=== PATIENT | male | born 1975 | race Caucasian/White ===

== ENCOUNTER 2022-05-23 09:26 | Emergency (ER) | payer BC, SELFPAY ==
[2022-05-23 09:35] VITALS: PULSE 94; RESP 20; TEMP 37; O2SAT 99
--- NOTE | 2022-05-23 10:31 | ED.GENADULT ---
HPI - General Adult General Chief complaint: Skin/Abscess/Foreign Body Stated complaint: Bee Sting History of Present Illness HPI narrative: Patient presents for evaluation of right-sided facial swelling. He indicates 2 days ago he was stung by a hornet on the right parietal aspect of his scalp. Yesterday he felt some swelling around the TMJ. He thought that this was an infectious process. He states that he has several bad teeth . He also has a history of recurrent sinusitis. He denies any sinus congestion or drainage at the present time. He denies any dental pain or facial pain. He states that he feels like there is something stuck in his right eye. He has some tearing and sensation that right eye feels like sandpaper. Denies other visual disturbance. No additional complaints or concerns. Related Data Allergies Allergy/AdvReac Type Severity Reaction Status Date / Time No Known Allergies Allergy Unverified 06/28/14 14:02 Review of Systems Review of Systems: CONSTITUTIONAL: Denies fever, chills, or sweats. EYES: Reports sensation of that there is something stuck in right eye with associated tearing. Reports sensation that his right eye feels like sandpaper. Reports tearing from right eye. Denies other visual disturbance. ENT: Reports swelling in right TMJ area. Denies rhinorrhea, congestion, sore throat, or otalgia. CARDIOVASCULAR: Denies chest pain, palpitations, or edema. RESPIRATORY: Denies cough or dyspnea. GASTROINTESTINAL: Denies abdominal pain, nausea, vomiting, or diarrhea. GENITOURINARY: Denies dysuria or hematuria. SKIN: Denies rash or itching. MUSCULOSKELETAL: Denies back pain, joint pain, or myalgia. NEUROLOGIC: Denies headache, numbness, dizziness, or weakness. PSYCHIATRIC: Denies anxiety or depression. [facility] Past Medical History Medical History (Updated 05/23/22 @ 10:44 by NELA Mckeon, ALLEN) History of baxter Surgical History Surgical History History of skin graft Family History Family History Mother Diabetes mellitus Father Diabetes mellitus Social History Social History Smoking status: Current every day smoker Tobacco type: e-cigarettes/vaping Alcohol intake: current Alcohol use details: social Substance use: never Living arrangements: with family Gender identity (if verbalized by the patient): Male Sexual Orientation (if Verbalized by the Patient): Straight or Heterosexual Spiritual care concerns: No Exam Narrative: GENERAL: Well-appearing, well-nourished, and in no acute distress. HEAD: Normocephalic, atraumatic. EYES: PERRLA and EOMI. I do not appreciate any dye uptake noted with fluorescein stain and Chacon lamp evaluation ENT: Nares clear, no rhinorrhea or epistaxis. Mucous membranes moist. Oropharynx without tonsillar hypertrophy exudate or other lesions. There are several fractured teeth eroded to the gumline. Multiple absent teeth. I do not appreciate any dental abscess. I do not appreciate any facial swelling. Bilateral TMs pearly rm nonbulging NECK: Supple. No adenopathy or masses. No carotid bruits or JVD CHEST: Clear to auscultation. No respiratory distress. No wheezes rales or rhonchi HEART: Regular rate and rhythm. No murmur heard. Normal peripheral pulses. ABDOMEN: Soft, nontender, nondistended, normal active bowel sounds. EXTREMITIES: Normal range of motion. No edema. SKIN: Warm, dry, no rash. NEURO: No focal deficits. Alert and oriented x3. PSYCH: Normal mood and affect. Course Course Emergency Course: This is a 46-year-old male who presented for evaluation of right-sided facial swelling and sensation of foreign body on the right eye. I do not appreciate any facial swelling, although patient does have several fractured and absent teeth. We will treat w
[2022-05-23 10:55] VITALS: BP 138/82
== END 2022-05-23 11:00 | disposition home or self-care (01) ==
PROVIDERS: Emergency Provider Nurse Practitioner; PCP Physician Assistant
DX: H10.9 Unspecified conjunctivitis (principal); S02.5XXA Fracture of tooth (traumatic), initial encounter for closed fracture; X58.XXXA Exposure to other specified factors, initial encounter; F17.290 Nicotine dependence, other tobacco product, uncomplicated
CPT/HCPCS: 99203; A9270; G0463

== ENCOUNTER 2022-05-25 07:59 | Emergency (ER) | payer BC, SELFPAY ==
--- NOTE | 2022-05-25 08:10 | ED.SKABFB ---
HPI - Skin/Abscess/Foreign Bdy General Chief complaint: Skin/Abscess/Foreign Body Stated complaint: swollen right eye Time Seen by Provider: 05/25/22 08:05 Source: patient and RN notes reviewed History of Present Illness HPI narrative: Patient is a 46-year-old male who presents the urgent care with complaints of a painful stinging rash starting in the right eye and extending over the right side of the head. The rash does not cross the midline. Patient states that he was seen here on Wednesday and treated for a possible infected tooth and pinkeye. Patient states has been taking the Augmentin as well as using the erythromycin and the rash is gotten much worse. Patient states it is painful. Denies of any trauma to the eye. Denies of any vision changes. No other acute complaints. No acute distress noted. Patient aware of the plan of care. Some parts of this dictation were generated by voice recognition software and may contain typographical and/or grammatical inaccuracies. Related Data Allergies Allergy/AdvReac Type Severity Reaction Status Date / Time No Known Allergies Allergy Unverified 05/25/22 08:09 Review of Systems Review of Systems: CONSTITUTIONAL: Denies fever, chills, or sweats. EYES: Reports of redness, swelling to the right eye ENT: Denies rhinorrhea, congestion, sore throat, or otalgia. CARDIOVASCULAR: Denies chest pain, palpitations, or edema. RESPIRATORY: Denies cough or dyspnea. GASTROINTESTINAL: Denies abdominal pain, nausea, vomiting, or diarrhea. GENITOURINARY: Denies dysuria or hematuria. SKIN: Reports of painful itchy rash to the right side of the head MUSCULOSKELETAL: Denies back pain, joint pain, or myalgia. NEUROLOGIC: Denies headache, numbness, or weakness. All other systems reviewed are negative, except as documented in HPI. COUNTS INCLUDE 234 BEDS AT THE [facility] Past Medical History Medical History (Updated 05/25/22 @ 08:16 by NELA Tay) History of baxter Surgical History Surgical History History of skin graft Family History Family History Mother Diabetes mellitus Father Diabetes mellitus Social History Social History Smoking status: Current every day smoker Tobacco type: e-cigarettes/vaping Alcohol intake: current Alcohol use details: social Substance use: never Gender identity (if verbalized by the patient): Male Sexual Orientation (if Verbalized by the Patient): Straight or Heterosexual Spiritual care concerns: No Comments At the time of my signature, I reviewed and agree with the nursing past medical, surgical, social, and family history. There is no relevant family history pertinent to the patient complaint. Exam Narrative: GENERAL: This is a well-nourished, well-developed patient, in no apparent distress. HEAD: normocephalic, atraumatic. EYES: PERRL. Left sclera clear/white. Vision is grossly intact. Moderately injected right conjunctiva with mild erythema to the left sclera and surrounding edema more notably to the upper right lid with scant yellow drainage EARS: External ears normal NOSE: External nose normal with no obvious nasal discharge, nares without redness, no rhinorrhea. THROAT: Mucous membranes moist NECK: Neck supple CARDIOVASCULAR: Regular rate and rhythm without murmurs, gallops, or rubs. RESPIRATORY: Clear to auscultation. Breath sounds equal bilaterally. No wheezes, rales, or rhonchi. SKIN: Pustular/vesicular herpes zoster dermatitis extending from the right over the parietal, temporal NEURO: awake, alert, and oriented to person, place and time. There were no obvious focal neurologic abnormalities. EXTREMITIES: No clubbing, cyanosis, or edema. Course Course Level of Care: Express Care Visit Vital Signs Vital signs: Vital Signs Temperature 99.3 F 05/25/22 08:11 Pulse Rate
[2022-05-25 08:11] VITALS: BP 175/105; PULSE 92; RESP 18; TEMP 37.4; O2SAT 100
[2022-05-25 08:23] VITALS: BP 155/98
== END 2022-05-25 08:23 | disposition home or self-care (01) ==
PROVIDERS: Emergency Provider Nurse Practitioner Family; PCP Physician Assistant
DX: B02.8 Zoster with other complications (principal); F17.290 Nicotine dependence, other tobacco product, uncomplicated
CPT/HCPCS: 99213; G0463

== ENCOUNTER 2025-02-19 08:27 | Emergency (ER) | payer BC, SELFPAY ==
[2025-02-19 08:36] VITALS: BP 140/100; PULSE 96; RESP 16; TEMP 37.1; O2SAT 97
--- OUTSIDE RECORDS SUMMARY | 2025-02-19 08:46 | XMS_ITS | Referral Summary ---
Author Organization [facility] Address [address] [place] [address] Care Team Providers Care Door Closer Name Role Phone Bashir Conley Primary Care Provider [phone] Allergies No known active allergies Medications ondansetron (ZOFRAN) 4 mg tablet Take 1 tablet (4 mg total) by mouth every 6 (six) hours 30 tablet 2 Active erythromycin (ILOTYCIN) ophthalmic ointment Apply to right eye nightly 3.5 g 1 2 Active bacitracin 500 unit/gram ointment Apply topically 2 (two) times a day 120 g 2 Active gabapentin (NEURONTIN) 300 mg capsuleIndicati ons:Neuropathic Pain Take 1 capsule (300 mg total) by mouth 3 (three) times a day Take 1 pill for 4 days, then take 2 pills for 4 days, then start taking 3 pills per day for the remainder of the course. 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 Gender Identity Male 05/26/2022 9:32 PM CDT Sexual Orientation Not on file Last Filed Vital Signs Vital Sign Reading Time Taken Comments Blood Pressure 148/65 05/27/2022 2:59 AM CDT Pulse 89 05/27/2022 2:59 AM CDT Temperature 37.3 C (99.1 F) 05/27/2022 2:59 AM CDT Respiratory Rate 18 05/27/2022 2:59 AM CDT Oxygen Saturation 98% 05/27/2022 2:59 AM CDT Inhaled Oxygen Concentration - - Weight 162.5 kg (358 lb 4 oz) 05/26/2022 9:22 PM CDT Height 193 cm (6' 3.98 ) 05/26/2022 9:22 PM CDT Body Mass Index 43.63 05/26/2022 9:22 PM CDT Plan of Treatment Not on file Insurance MARGARET GILLIAM [id number] [place] [address] PLAN MARGARET GILLIAM [id number] Care Teams Door Closer Relationship Specialty Start Date End Date Bashir Conley PA [address] [place] [address] PCP - General 05/26/22
--- OUTSIDE RECORDS SUMMARY | 2025-02-19 08:46 | XMS_ITS | Clinical Summary ---
Author Organization [facility] Address [address] [place] [address] Care Team Providers Care Steel Fitter Name Role Phone Bashir Conley Primary Care Provider [phone] Allergies No known active allergies Medications ondansetron [...] tunnel syndrome 03/15/2014 Arthralgia of wrist 03/15/2014 Surgical History Surgery Date Site/Laterality Comments SKIN GRAFT 11/15/1983 - 11/14/1984 CARPAL TUNNEL RELEASE rx1, L2x Social History Tobacco Use Types Packs/Day Years Used Date Smoking Tobacco: Former Cigarettes Smokeless Tobacco: Never Sex and Gender Information Value Date Recorded Sex Assigned at Not on file 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 Gender Identity Male 05/26/2022 9:32 PM CDT Sexual Orientation Not on file Obstetrics History Last Filed Vital Signs Vital Sign Reading [...] 05/26/2022 9:22 PM CDT Plan of Treatment Health Maintenance Due Date Last Done Comments Colon Cancer Screening-Colonoscopy 1975 Depression Screening 1975 Hepatitis C Screening 1975 DTaP/Tdap/Td Vaccine (1 - Tdap) 1986 Hepatitis B Screening 1993 Regular Well Visit/Exam 18-64 1993 Covid-19 Vaccine (3 - 2023-2 5 season) 2024 12/17/2020, 11/26/2020 Influenza Vaccine (#1) 2024 Pneumococcal vaccine <65 Aged Out No longer eligible based on patient's age to complete this topic Insurance MARGARET GILLAIM [facility] Care Teams Steel Fitter Relationship Specialty Start Date End Date Bashir Conley PA [address] [place] [address] PCP - General 05/26/22
--- OUTSIDE RECORDS SUMMARY | 2025-02-19 08:46 | XMS_ITS | Encounter Summary ---
Author Organization [facility] Address [address] [place] [address] Phone Care Team Providers Care State Game Warden Name Role Phone Bashir Conley Primary Care Provider [phone] Encounter Details Date Type Department Care Team (Late st Contact Info) Description 05/27/2022 Ophth Exam [facility] [address] [place] [address] 1st [place] [id number] Jessica Law MD [address] [facility] [id number] [place], [place] [id number] Social History Tobacco Use Types Packs/Day Years Used Date Smoking Tobacco: Former Cigarettes Smokeless Tobacco: Never Sex and Gender Information Value Date Recorded Sex Assigned at Not on file 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 Gender Identity Male 05/26/2022 9:32 PM CDT Sexual Orientation Not on file documented as of this encounter Plan of Treatment Not on file documented as of this encounter Visit Diagnoses Not on filedocumented in this encounter Eye Exam Visual Acuity Right eye Left eye Near sc 20/20 20/20 Tonometry (Tonopen, 1:30 AM) Right eye Left eye Pressure 17 14 Pupils Pupils Dark Light Shape React APD Right eye PERRL 4 2.5 Round Brisk None Left eye PERRL 4 2.5 Round Brisk None Visual Lopez (Counting fingers) Right eye Left eye Full Full Extraocular Movement Right eye Left eye Full Full Neuro/Psych Oriented x3: Yes Mood/Affect: Normal Dilation Both eyes: 1.0% Mydriacyl, 2 .5% Phenylephrine @ 1:34 AM External Exam Right eye Left eye External V1 zoster rash Normal Slit Lamp Exam Right eye Left eye Lids/Lashes Vesicular lesions in V1 distribution, including along margins, with mild eyelid swelling/redness Normal Conjunctiva/Sclera 2+ diffuse injection with resolving MARTHA superonasal White and quiet Cornea SPEE, no dendrites SPEE OS>OD Anterior Chamber Deep and quiet, no cell/flare D eep and quiet, no cell/flare Iris Round and reactive Round and rah ctive Lens 1+ NS 1+ NS Vitreous Normal Normal Fundus Exam Right eye Left eye Disc Normal Normal C/D Ratio 0.05 0.05 Macula Normal Normal Vessels Normal Normal Periphery Normal Normal Care Teams State Game Warden Relationship Specialty Start Date End Date Bashir Conley PA [address] [place] [address] PCP - General 05/26/22 documented as of this encounter
--- NOTE | 2025-02-19 10:07 | ED_ITS ---
HPI - Abdominal Pain General Chief Complaint: Abdominal Pain Stated Complaint: Vomiting/Stomach Problem Source: patient and RN notes reviewed Mode of arrival: ambulatory Limitations: no limitations History of Present Illness HPI narrative: 49-year-old male presents to the [facility] complaining epigastric pain over the last 2 years. Patient states his symptoms have been going off and on. He denies the pain being constant but he says they come in waves can last anywhere between 2 and 8 hours. When the episodes occurs he develops nausea and sometimes vomits. He reports the pain is sometimes sharp sometimes burning. He says he takes ibuprofen for his symptoms. He says he drinks large quantities of water and says that it helps with the pain sometimes. He denies any diarrhea, blood in stool, or vomiting blood. He said he used to be an alcoholic but says he stopped drinking a month ago. He denies any significant past medical history. He says he is able to keep his fluids and food down without issue. Related Data Allergies Allergy/AdvReac Type Severity Reaction Status Date / Time No Known Allergies Allergy Unverified 05/25/22 08:09 Review of Systems Review of Systems: CONSTITUTIONAL: Denies fever, chills, or sweats. EYES: Denies visual changes, redness, or discharge. ENT: Denies rhinorrhea, congestion, sore throat, or otalgia. CARDIOVASCULAR: Denies chest pain, palpitations, or edema. RESPIRATORY: Denies cough or dyspnea. GASTROINTESTINAL: Positive for abdominal pain, nausea, vomiting, Negative for diarrhea, melena, hematochezia. GENITOURINARY: Denies dysuria or hematuria. SKIN: Denies rash or itching. MUSCULOSKELETAL: Denies back pain, joint pain, or myalgia. NEUROLOGIC: Denies headache, numbness, or weakness. PSYCHIATRIC: Denies anxiety or depression. All other systems reviewed are negative, except as documented in HPI. REPLACED BY [facility] Past Medical History Medical History History of baxter Surgical History Surgical History History of skin graft Family History Family History Mother Diabetes mellitus Father Diabetes mellitus Social History Social History Smoking status: Current every day smoker Tobacco type: e-cigarettes/vaping Alcohol intake: current Alcohol use details: social Substance use: never Living arrangements: with family Gender identity (if verbalized by the patient): Male Sexual Orientation (if Verbalized by the Patient): Straight or Heterosexual Spiritual care concerns: No Comments At the time of my signature, I reviewed and agree with the nursing past medical, surgical, social, and family history. There is no relevant family history pertinent to the patient complaint. Exam Narrative: GENERAL: This is a well-nourished, well-developed adult, in no apparent distress. They are non ill-appearing, nontoxic appearing. The patient is obese. HEAD: normocephalic, atraumatic. EYES: Sclera clear/white. Vision is grossly intact. EARS: External ears normal, Hearing grossly intact. NOSE: External nose normal THROAT: Mucous membranes moist NECK: Neck supple CARDIOVASCULAR: Regular rate and rhythm without murmurs, gallops, or rubs. RESPIRATORY: Clear to auscultation. Breath sounds equal bilaterally. No wheezes, rales, or rhonchi. GASTROINTESTINAL: Abdomen is large,soft, non-tender, nondistended. Bowel sounds are active. No palpable masses. No guarding. Unable to fully assess the abdomen due to large body habitus. SKIN: warm, Dry, intact with no suspicious lesions or rash, good texture and turgor. NEURO: awake, alert, and oriented to person, place and time. There were no obvious focal neurologic abnormalities. EXTREMITIES: No joint tenderness, effusion, or edema noted. Course Course Emergency Course: Patient is aware of diagnosis, understands and agrees to treatment plan. Anticipatory guidance given. Patient agrees to follow-up as directed and is aware of reasons to seek care at the emergency department. Portions of this record may have been created with voice recognition software Level of Care: Express Care Visit Vital Signs Vital signs: Vital Signs Temperature 98.8 F 02/19/25 08:36 Pulse Rate 96 02/19/25 08:36 Respiratory Rate 16 02/19/25 08:36 Blood Pressure 140/100 H 02/19/25 08:36 Pulse Oximetry 97 02/19/25 08:36 Oxygen Delivery Room Air 02/19/25 08:36 Temperature 98.8 F 02/19/25 08:36 Pulse Rate 96 02/19/25 08:36 Respiratory Rate 16 02/19/25 08:36 Blood Pressure 137/95 H 02/19/25 10:32 Pulse Oximetry 97 02/19/25 08:36 Oxygen Delivery Room Air 02/19/25 08:36 Reviewed MDM - Abdominal Pain MDM Narrative Medical decision making narrative: Patient has no abdominal tenderness to palpation, there is no peritoneal findings. Symptoms are likely related to a gastritis which could be caused from acid reflux or a stomach ulcer. He is having no bleeding in his bowels or throwing up any blood. We will start him on omeprazole in the morning and Pepcid at night. Diet modifications were discussed. He will likely need to follow-up with the GI specialist for further evaluation. Discussed physical exam findings. Advised supportive measures and signs/symptoms to go to the ER. Pt is appropriate for outpt treatment and f/u. Differential Diagnosis Differential diagnosis: Likely pancreatitis and other (Acid reflux, gastric ulcer, gastritis) Critical Care Time Critical Care Time Critical Care Time: No Discharge Plan Discharge Clinical Impression: Gastritis Qualifiers: Gastritis type: unspecified gastritis Chronicity: unspecified Gastritis bleeding: presence of bleeding unspecified Qualified Code(s): K29.70 - Gastritis, unspecified, without bleeding Patient Disposition: Home Condition: Stable Instructions: Gastritis (DC), Diet for Stomach Ulcers and Gastritis (ED) Additional Instructions: Please take the omeprazole as directed and the morning. Take the Pepcid at night. you will need to follow-up with the GI doctor, 1 was given to you. You may need a referral from your primary care provider. A list of dietary modifications have been provided to you to help with any triggers from gastritis. If you develop any worsening abdominal pain, uncontrolled nausea, vomiting, fevers, blood in stool or vomit or any other concerns please proceed to the emergency department. Patient Language: Nicaraguan Prescriptions: New omeprazole 40 mg capsule,delayed release(DR/EC) 40 mg PO DAILY Qty: 30 0RF famotidine [Pepcid] 20 mg tablet 20 mg PO HS Qty: 30 0RF Follow-up/Referrals: Jarvis,MARGARET Villalpando [Primary Care Provider] - Basilio Espinoza MD [Physician] - Time of Disposition: 09:43
[2025-02-19 10:32] VITALS: BP 137/95
== END 2025-02-19 10:45 | disposition home or self-care (01) ==
PROVIDERS: PCP Physician Assistant
DX: K29.70 Gastritis, unspecified, without bleeding (principal); F17.290 Nicotine dependence, other tobacco product, uncomplicated
CPT/HCPCS: 99213; G0463

== ENCOUNTER 2025-09-30 02:23 | Emergency (ER) | payer BC, SELFPAY ==
[2025-09-30] VITALS (7 sets, daily range): BP systolic 136–150; BP diastolic 74–89; PULSE 69–86; RESP 14–22; TEMP 36.6–36.7; O2SAT 92–99
--- NOTE | ~2025-09-30 | XR_ITS ---
Examination: XR chest 1V portable Clinical History: STERNAL CHEST PAIN X 6 HRS. Comparison: None Technique: Portable AP Findings: Heart size normal. Lungs clear. No acute bony abnormality. IMPRESSION: 1. No acute cardiopulmonary findings given portable technique. Reviewed, dictated and finalized at location [facility] [employer] [employer]
--- NOTE | 2025-09-30 02:25 | ECG_ITS ---
Test Date: 2025-09-30 02:29:18 Measurements Intervals Browning Rate: 79 P: 48 UT: 168 QRS: -7 QRSD: 100 T: 59 QT: 386 QTc: 444 Interpretive Statements SINUS RHYTHM NONSPECIFIC T-WAVE ABNORMALITY No previous ECG available for comparison Electronically Signed On 10-01-2025 12:10:46 MOBILE ARCHITECT by Lawrence Patel M.D.
--- NOTE | 2025-09-30 02:25 | ED_ITS ---
HPI - Chest Pain General Chief Complaint: Chest Pain Stated Complaint: Chest Pain Time Seen by Provider: 09/30/25 02:25 Source: patient Mode of arrival: ambulatory Limitations: no limitations History of Present Illness HPI narrative: Patient is a 50-year-old male with substernal chest pain for the past 4-5 hours. The pain has subsided at this time. He was having chest pain at home at rest. No nausea vomiting or diarrhea. No fever chills. No abdominal pain. No history of CAD. Some strong family history of early CAD. The pain spreads across the left and right chest. No neck or back pain. No shortness of breath. MD complaint: chest pain and chest heaviness Pertinent past history: other (GERD) Onset (ago): hour(s) (4-5) Timing of current episode: episodic Prior episodes: No Onset: during rest Pain location: substernal Pain radiation: other (Bilateral chest) Severity: severe Pain scale (0-10): 8 Quality: heaviness, sharp and fullness Relieving factors: nothing Exacerbating factors: nothing Context: other (Patient is having chest pain substernal for the past 4-5 hours. No associated shortness of breath or other symptoms.) Associated symptoms: other (None) Treatment prior to arrival: none Risk Factors Coronary artery disease risk factors: smoking history Thoracic aortic dissection risk factors: none Related Data Allergies Allergy/AdvReac Type Severity Reaction Status Date / Time No Known Allergies Allergy Unverified 05/25/22 08:09 Review of Systems 2 Review of Systems: All systems reviewed & are unremarkable except as noted in HPI and below Constitutional: Constitutional: Reports no additional constitutional complaints Eyes: Eyes: Reports no additional eye complaints ENT: Reports system reviewed and no additional complaints, except as documented Cardiovascular: Cardiovascular: Reports no additional cardiovascular complaints Respiratory: Respiratory: Reports no additional respiratory complaints Gastrointestinal: Gastrointestinal: Reports no additional gastrointestinal complaints Genitourinary: Genitourinary: Reports no additional male genitourinary complaints Musculoskeletal: Musculoskeletal: Reports no additional musculoskeletal complaints Integumentary/Breasts: Skin/Breast: Reports system reviewed and no additional complaints, except as docu Neurologic: Reports system reviewed and no additional complaints, except as documented Psychiatric: Psychiatric: Reports no additional psychiatric complaints Endocrine: Endocrine: Reports no additional endocrine complaints Hematologic/Lymphatic: Hematologic/Lymphatic: Reports no additional hematologic/lymphatic complaints Allergic/Immunologic: Allergic/Immunologic: Reports no additional allergic/immunologic complaints [facility] Past Medical History Medical History History of baxter Surgical History Surgical History History of skin graft Family History Family History Mother Diabetes mellitus Father Diabetes mellitus Social History Social History Smoking status: Current every day smoker Tobacco type: e-cigarettes/vaping Alcohol intake: current Alcohol use details: social Substance use: never Living arrangements: with family Gender identity (if verbalized by the patient): Male Sexual Orientation (if Verbalized by the Patient): Straight or Heterosexual Spiritual care concerns: No Exam 2 Const: General: healthy appearing Nutritional Appearance: well nourished Orientation/consciousness: patient oriented x3 Limitations: no limitations HENMT: Head: normal to inspection Ears: external ears normal F freddie/Nose/Sinus: Normal external nose present Eyes: Conjunctivae: conjunctivae normal Pupils: Equal, round and reactive pupils present EOM: EOMs intact bilaterally Neck: Neck: normal visual inspection Chest: Chest palpation & inspection: normal inspection of the chest Resp: Effort & Inspection: normal respiratory effort and not labored A uscultation: clear to auscultation bilaterally and no crackles Cardio: Rate: regular rate Rhythm: regular rhythm Heart sounds: no murmurs GI: Inspection: non-distended GI Palp: Yes Soft to palpation and No Tenderness to palpation present (GI) Auscultation: normal bowel sounds : General: Yes bladder normal to palpation Back/Spine/Pelvis: Back: no CVA tenderness Skin: General skin exam: normal color Rashes: no rashes Wounds: no wounds Neuro: General: patient oriented x3, moves all extremities and no meningeal signs Extrem: General: normal to inspection, no clubbing, cyanosis or edema and no pedal edema Psych: Mental Status: mental status grossly normal Affect: normal affect Attitude: cooperative Course Vital Signs Vital signs: Vital Signs Temperature 36.7 C 09/30/25 02:25 Pulse Rate 86 09/30/25 02:25 Respiratory Rate 20 09/30/25 02:25 Blood Pressure 149/89 H 09/30/25 02:25 Pulse Oximetry 98 09/30/25 02:25 Oxygen Delivery Room Air 09/30/25 02:25 Temperature 36.7 C 09/30/25 02:25 Pulse Rate 76 09/30/25 03:31 Respiratory Rate 14 09/30/25 02:39 Blood Pressure 138/77 09/30/25 03:31 Pulse Oximetry 97 09/30/25 02:39 Oxygen Delivery Room Air 09/30/25 02:25 MDM - Chest Pain MDM Narrative Medical decision making narrative: Patient is a 50-year-old male with substernal chest pain for the past 4-5 hours. We will do a cardiopulmonary workup at this time. Lab Data Attestation: I reviewed the patient's lab results. 09/30/25 03:03 09/30/25 03:03 Labs: Lab Results 09/30/25 Range/Units 03:03 WBC 12.5 H (4.8-10.8) K/mm3 RBC 5.10 (4.70-6.10) M/mm3 Hgb 15.2 (14.0-18.0) g/dL Hct 46.2 (40.0-54.0) % MCV 90.6 (78.0-102.0) fL MCH 29.8 (27.0-31.0) pg MCHC 32.9 (32-36) g/dL RDW 13.2 (11.6-14.4) % Plt Count 231 (150-420) K/mm3 MPV 9.4 (8.7-11.0) fl Immature Gran % (Auto) 0.4 H (0.0-0.0) % Neut % (Auto) 80.6 H (50.0-70.0) % Lymph % (Auto) 12.5 L (18.0-42.0) % Mcdowell % (Auto) 5.0 (2.0-11.0) % Eos % (Auto) 1.2 (1.0-6.0) % Baso % (Auto) 0.3 (0.0-1.0) % Lymph # (Auto) 1.57 (1.10-4.50) K/mm3 Mcdowell # (Auto) 0.62 (0.10-0.90) K/mm3 Eos # (Auto) 0.15 (0.02-0.50) K/mm3 Baso # (Auto) 0.04 (0.00-0.10) K/mm3 Abs Immat Gran (auto) 0.05 H (0.00-0.00) K/mm3 Absolute Neuts (auto) 10.08 H (1.70-7.20) K/mm3 Absolute Nucleated RBC 0.00 (0.00-0.00) K/mm3 Nucleated RBC % 0.0 (0-0.0) % PT 10.6 (9.50-12.1) Seconds INR 1.0 APTT 24.2 (23.9-30.70) Sec D-Dimer 0.31 (0.19-0.50) mg/L Sodium 139 (137-145) mmol/L Potassium 3.4 (3.4-5.0) mmol/L Chloride 101 (98-107) mmol/L Carbon Dioxide 27 (22-30) mmol/L Anion Gap 11 (4-12) mmol/L BUN 19 (9-20) mg/dL Creatinine 0.86 (0.7-1.3) mg/dL Estim Creat Clear Calc 146 ml/min Estimated GFR > 60 (59 - ) Glucose 180 H (65-110) mg/dL Calculated Osmolality 295 (285-295) mOsm/kg Calcium 9.0 (8.4-10.2) mg/dL Total Bilirubin 1.3 (0.2-1.3) mg/dL AST 28 (17-59) U/L ALT 40 (6-50) U/L Alkaline Phosphatase 69 (38-126) U/L Troponin I < 0.012 (0.000-0.034) ng/mL NT-Pro-B Natriuret Pep < 20 (19.9-100) pg/mL Total Protein 7.3 (6.3-8.2) g/dL Albumin 4.5 (3.5-5.1) g/dL Lipase 43 (23-300) U/L Imaging Data Attestation: I personally reviewed and interpreted this imaging study as follows: My impression: Chest x-ray pending final reading is negative for acute process ECG Data EKG #1: Attestation: I personally reviewed and interpreted this ECG as follows: ECG completion date: 09/30/25 ECG completion time: 02:42 EKG Interpretation: normal rate, sinus rhythm, no ectopy, no ST changes, normal QRS, normal QT, left axis and no acute changes Discharge Plan Discharge Clinical Impression: Atypical chest pain, Chest pain due to GERD Patient Disposition: Home Condition: Stable Instructions: Chest Pain (ED), GERD (Gastroesophageal Reflux Disease) (DC) Patient Language: Marshallese Prescriptions: No Action omeprazole 40 mg capsule,delayed release(DR/EC) 40 mg PO DAILY Qty: 30 0RF famotidine [Pepcid] 20 mg tablet 20 mg PO HS Qty: 30 0RF Follow-up/Referrals: Jarvis,MARGARET Villalpando [Primary Care Provider] Time of Disposition: 03:59
[2025-09-30] MEDS: ASPIRIN 81 MG CHEWABLE TABLET 324 MG PO (03:09)
[2025-09-30] MEDS: NITROGLYCERIN SL 0.4 MG TABLET SUBLINGUAL (03:11)
[2025-09-30 03:12] LABS: Hematocrit 46.2 % (40.0-54.0); Hemoglobin 15.2 g/dL (14.0-18.0); Immature Granulocyte Percent A 0.4 % (0.0-0.0); Lymphocytes Absolute Auto 1.57 K/mm3 (1.10-4.50); Mean Corpuscular HGB Conc 32.9 g/dL (32-36); Mean Corpuscular Hemoglobin 29.8 pg (27.0-31.0); Mean Corpuscular Volume 90.6 fL (78.0-102.0); Nucleated Red Blood Cells Absolute Auto 0.00 K/mm3 (0.00-0.00); Nucleated Red Blood Cells Perc 0.0 % (0-0.0); Platelet Count Result 231 K/mm3 (150-420); Red Blood Count 5.10 M/mm3 (4.70-6.10); White Blood Count 12.5 K/mm3 (4.8-10.8)
[2025-09-30 03:20] LABS: Alanine Aminotransferase 40 U/L (6-50); Albumin Level 4.5 g/dL (3.5-5.1); Alkaline Phosphatase 69 U/L (38-126); Anion Gap 11 mmol/L (4-12); Aspartate Amino Transferase 28 U/L (17-59); Blood Urea Nitrogen 19 mg/dL (9-20); Calcium 9.0 mg/dL (8.4-10.2); Carbon Dioxide 27 mmol/L (22-30); Chloride 101 mmol/L (98-107); Estimated CRCL calculation 146 ml/min; Estimated Glomerular Filt Rate > 60; Glucose 180 mg/dL (65-110); Lipase 43 U/L (23-300); Osmolality Calculated 295 mOsm/kg (285-295); Potassium 3.4 mmol/L (3.4-5.0); Sodium 139 mmol/L (137-145); Total Protein 7.3 g/dL (6.3-8.2)
[2025-09-30 03:23] LABS: INR 1.0; Partial Thromboplastin Time 24.2 Sec (23.9-30.70); Prothrombin Time 10.6 Seconds (9.50-12.1)
[2025-09-30 03:29] LABS: NT Pro B Type Natriuretic Pept < 20 pg/mL (19.9-100)
[2025-09-30 03:31] LABS: Troponin I < 0.012 ng/mL (0.000-0.034)
[2025-09-30] MEDS: MAG HYDROX/ALUMINUM HYD/SIMETH 30 ML, PHENobarb/HYOSCY/ATROPINE/SCOP 32.4 MG, LIDOCAINE... PO (03:47)
[2025-10-02 13:13] LABS: Bilirubin,Total < 0.1 mg/dL (0.2-1.3)
== END 2025-09-30 04:08 | disposition home or self-care (01) ==
PROVIDERS: Emergency Provider Emergency Medicine; PCP Physician Assistant
DX: K21.9 Gastro-esophageal reflux disease without esophagitis (principal); F17.290 Nicotine dependence, other tobacco product, uncomplicated
CPT/HCPCS: 36415; 71045; 80053; 83690; 83880; 84484; 85025; 85380; 85610; 85730; 93005; 99284; A9270